=== PATIENT | female | born 1940 | race Caucasian/White ===

== ENCOUNTER 2022-12-15 10:08 | Inpatient (IN) | payer MEDICARE ==
[2022-12-15] MEDS ORDERED: Iopamidol 370 76% 100 ML VIAL ONE (10:10)
[2022-12-15 11:38] LABS: #Basophils 0.1 thou/uL (0.0-0.2); #Monocytes 1.3 thou/uL (0.11-0.59); #Neutrophils 9.9 thou/uL (1.40-6.50); %Basophils 0.5 % (0.0-1.0); %Eosinophils 0.2 % (0.0-10.0); %Monocytes 10.2 % (0.0-10.0); %Neutrophils 78.6 % (42.0-75.0); Hemoglobin 12.5 g/dL (12.0-16.0); Mean Corpuscular HGB CONC 33.4 g/dL (32.0-36.0); Mean Corpuscular Hemoglobin 32.1 pg (27.0-31.0); Mean Corpuscular Volume 95.9 fl (78.0-98.0); Mean Platelet Volume 8.8 fL (7.4-10.4); Platelet Count 175 10x3/uL (130-400); RBC Distribution Width 12.5 % (11.5-14.5); White Blood Cell (WBC) Count 12.6 10x3/uL (4.8-10.8)
[2022-12-15] MEDS ORDERED: Ketorolac Tromethamine 30 MG/ML VIAL ONE (12:27)
[2022-12-15 13:14] LABS: Albumin 4.2 g/dL (3.4-4.8)
[2022-12-15 13:15] LABS: Chloride 102 mmol/L (98-107); Potassium 4.9 mmol/L (3.5-5.1); Sodium 133 mmol/L (136-145)
[2022-12-15 13:16] LABS: Calcium 9.8 mg/dL (7.8-10.44); Glucose 113 mg/dL (83-110)
[2022-12-15 13:17] LABS: Globulin 3.1 g/dL (2.4-3.5); Protein, Total 7.3 g/dL (5.8-8.1)
[2022-12-15 13:18] LABS: Anion Gap 11 mmol/L (10-20); Bilirubin, Total 0.9 mg/dL (0.2-1.2); Carbon Dioxide 25 mmol/L (23-31)
[2022-12-15 13:19] LABS: Alkaline Phosphatase 73 U/L (40-110)
[2022-12-15 13:20] LABS: BUN (Urea Nitrogen) 12 mg/dL (9.8-20.1); Calc. Creatinine Clearance 0 mL/min (70-130); Estimated GFR 87
[2022-12-15 13:22] LABS: ALT (SGPT) 16 U/L (8-55); AST (SGOT) 21 U/L (5-34)
[2022-12-15] MEDS ORDERED: LORazepam 2 MG/ML SYR.(CARPUJECT) ONE (14:04)
[2022-12-15] MEDS ORDERED: Piperacillin/Tazobactam 4.5 GM VIAL ONE (16:03)
[2022-12-15] MEDS ORDERED: Acetaminophen 325 MG TAB PO PRN (17:07)
[2022-12-15] MEDS ORDERED: Metoprolol Tartrate 5 MG/5 ML VIAL IVP PRN (17:12)
[2022-12-15] MEDS ORDERED: hydrALAZINE 20 MG/ML VIAL SLOW IVP PRN (19:08)
[2022-12-15] MEDS ORDERED: Sodium Chloride 0.9% 1,000 ML IV SCH (19:15)
[2022-12-15] MEDS: Piperacillin/Tazobactam 3.375 GM in Sodium Chloride 0.9% 100 ML IVPB SCH (21:29)
[2022-12-15] MEDS: Ketorolac Tromethamine 30 MG/ML VIAL IVP PRN (21:29)
[2022-12-15 23:05] VITALS: BMI 19.3
[2022-12-16] MEDS: Methocarbamol 500 MG TAB PO PRN ×2 (01:12→17:19)
[2022-12-16] MEDS: Piperacillin/Tazobactam 3.375 GM in Sodium Chloride 0.9% 100 ML IVPB SCH ×2 (05:16→13:30)
[2022-12-16 06:01] LABS: #Eosinphils 0.2 thou/uL (0.0-0.7); #Monocytes 0.8 thou/uL (0.11-0.59); #Neutrophils 4.7 thou/uL (1.40-6.50); %Basophils 0.5 % (0.0-1.0); %Eosinophils 3.1 % (0.0-10.0); %Lymphocytes 20.4 % (21.0-51.0); %Monocytes 11.5 % (0.0-10.0); %Neutrophils 64.2 % (42.0-75.0); Hemoglobin 11.6 g/dL (12.0-16.0); Mean Corpuscular Hemoglobin 31.1 pg (27.0-31.0); Mean Corpuscular Volume 97.1 fl (78.0-98.0); Mean Platelet Volume 8.9 fL (7.4-10.4); Platelet Count 169 10x3/uL (130-400); RBC Distribution Width 12.2 % (11.5-14.5); Red Blood Cell (RBC) Count 3.73 mill/uL (4.20-5.40); White Blood Cell (WBC) Count 7.3 10x3/uL (4.8-10.8)
[2022-12-16 06:25] LABS: Anion Gap 12 mmol/L (10-20); BUN (Urea Nitrogen) 14 mg/dL (9.8-20.1); Calc. Creatinine Clearance 53 mL/min (70-130); Calcium 9.4 mg/dL (7.8-10.44); Carbon Dioxide 23 mmol/L (23-31); Chloride 102 mmol/L (98-107); Estimated GFR 87; Glucose 97 mg/dL (83-110); Sodium 133 mmol/L (136-145)
[2022-12-16] MEDS: Ketorolac Tromethamine 30 MG/ML VIAL IVP PRN (10:44)
[2022-12-16 17:04] VITALS: BP 133/64; TEMP 97.6
== END 2022-12-16 18:50 | disposition home or self-care (01) | DRG 155 ==
LOC: ERS 10:08 → SURG B 18:44
PROVIDERS: ADMIT Internal Medicine; ATTEND Internal Medicine
DX: K11.20 Sialoadenitis, unspecified (principal); K12.2 Cellulitis and abscess of mouth; L02.11 Cutaneous abscess of neck; I10 Essential (primary) hypertension; E78.00 Pure hypercholesterolemia, unspecified; Z79.899 Other long term (current) drug therapy; Z79.82 Long term (current) use of aspirin
CPT/HCPCS: 36415; 70487; 80048; 80053; 85025; J1650; J1885; J2060; J2543; J3490; J7050; Q9967